=== PATIENT | female | born 1955 | race Caucasian/White ===

== ENCOUNTER → 2020-06-25 | Outpatient (CLI) | payer MEDICARE, OTHER ==
[~2020-06-25] MED LIST: LEVO50TA5 PO; SIMV20TA22
== END ==
LOC: M LABSMTC 09:36
PROVIDERS: ATTEND Surgery
DX: Z01.812 Encounter for preprocedural laboratory examination (principal); Z20.822 Contact with and (suspected) exposure to COVID-19

== ENCOUNTER 2020-06-30 09:01 | Day surgery (SDC) | payer MEDICARE ==
[~2020-06-30] VITALS: Ht 157.5 cm; Wt 71.7 kg
[~2020-06-30 09:01] MED LIST changes: +NS 1,000 ML IV ONE
[2020-06-30] MEDS ORDERED: propofoL 200 MG/20 ML VIAL As Ordered ONE ×2 (10:29→11:10)
--- NOTE | 2020-06-30 10:49 | ROOR ---
Patient Name: Gina Ocampo Procedure Date: 06/30/2020 10:29 AM Date of : 1955 Age: 65 Room: [facility] Gender: Female Note Status: Finalized Procedure: Colonoscopy Indications: High risk colon cancer surveillance: Personal history of colonic polyps Providers: Michelet Carter Jr, MD Referring MD: Daisha Segura DO Requesting Provider: Medicines: Propofol per Anesthesia Complications: No immediate complications. Procedure: Pre-Anesthesia Assessment: - Prior to the procedure, a History and Physical was performed, and patient medications and allergies were reviewed. The patient is competent. The risks and benefits of the procedure and the sedation options and risks were discussed with the patient. All questions were answered and informed consent was obtained. Patient identification and proposed procedure were verified by the physician and the nurse in the pre-procedure area and in the procedure room. Mental Status Examination: alert and oriented. Airway Examination: normal oropharyngeal airway and neck mobility. Respiratory Examination: clear to auscultation. CV Examination: normal. ASA Grade Assessment: II - A patient with mild systemic disease. After reviewing the risks and benefits, the patient was deemed in satisfactory condition to undergo the procedure. The anesthesia plan was to use moderate sedation / analgesia (conscious sedation). Immediately prior to administration of medications, the patient was re-assessed for adequacy to receive sedatives. The heart rate, respiratory rate, oxygen saturations, blood pressure, adequacy of pulmonary ventilation, and response to care were monitored throughout the procedure. The physical status of the patient was re-assessed after the procedure. The Colonoscope was introduced through the anus and advanced to the cecum, identified by appendiceal orifice and ileocecal valve. The colonoscopy was performed without difficulty. The patient tolerated the procedure well. The quality of the bowel preparation was adequate. Findings: Four hyperplastic polyps were found in the rectum, recto-sigmoid colon, descending colon and transverse colon. The polyps were diminutive in size. These polyps were removed with a cold snare. Resection and retrieval were complete. The sigmoid colon, ascending colon, cecum, appendiceal orifice and ileocecal valve appeared normal. Impression: - Four diminutive polyps in the rectum, at the recto-sigmoid colon, in the descending colon and in the transverse colon, removed with a cold snare. Resected and retrieved. - The sigmoid colon, ascending colon, cecum, appendiceal orifice and ileocecal valve are normal. Recommendation: - Discharge patient to home (ambulatory). - Repeat colonoscopy in 5 years for surveillance. Procedure Code(s): --- Professional --- 91090, Colonoscopy, flexible; with removal of tumor(s), polyp(s), or other lesion(s) by snare technique Diagnosis Code(s): --- Professional --- Z86.010, Personal history of colonic polyps K62.1, Rectal polyp K63.5, Polyp of colon CPT copyright 2019 [employer]. All rights reserved. The codes documented in this report are preliminary and upon optical instruments supervisor review may be revised to meet current compliance requirements. Michelet Carter MD Michelet Carter Jr, MD 06/30/2020 10:49:44 AM Electronically signed by Michelet Carter Jr, MD Number of Addenda: 0 Note Initiated On: 06/30/2020 10:29 AM Estimated Blood Loss: Estimated blood loss: none.
[2020-06-30 11:05] VITALS: BP 123/69
== END 2020-06-30 11:07 | disposition home or self-care (01) ==
LOC: M OPP 09:01 → EDUNIT# 10:30 → M OPP 11:07
PROVIDERS: ATTEND Surgery
DX: Z12.11 Encounter for screening for malignant neoplasm of colon (principal); Z86.010 Personal history of colon polyps; K63.5 Polyp of colon; K62.1 Rectal polyp; Z79.899 Other long term (current) drug therapy; Z88.0 Allergy status to penicillin; Z88.1 Allergy status to other antibiotic agents; Z87.891 Personal history of nicotine dependence